=== PATIENT | female | born 1940 | race Caucasian/White ===

== ENCOUNTER 2018-12-09 14:48 | Emergency (ER) | payer OTHER ==
[~2018-12-09] VITALS: Ht 157.5 cm; Wt 68.0 kg
[2018-12-09] MEDS ORDERED: ASPIR 8181 MG PO (15:10)
[2018-12-09] MEDS ORDERED: ZOCOR40 MG PO (15:11)
[2018-12-09] MEDS ORDERED: PRILOSEC OTC20 MG PO (15:11)
[2018-12-09] MEDS ORDERED: METOPROLOL SUCC50 MG PO (15:11)
== END 2018-12-09 17:36 | disposition home or self-care (01) ==
LOC: ER 14:48
DX: R22.1 Localized swelling, mass and lump, neck (principal)